=== PATIENT | female | born 1935 | race Caucasian/White ===

== ENCOUNTER 2019-06-08 19:51 | Inpatient (IN) | payer MEDICARE, OTHER ==
[~2019-06-08] VITALS: Ht 165.1 cm; Wt 65.8 kg
[~2019-06-08 19:51] MED LIST: ACID REDUCER150 MG PO; ALBUTEROL2.5 MG/3 M INH; BACTRIM 400-801 EACH PO; CIPROFLOXACIN250 MG PO; CIPROFLOXACIN500 MG PO; CRANBERRY200 MG PO; FLUTICASONE PRO16 GM NAS; LEVOFLOXACIN500 MG PO; MIRALAX17 GM PO; MULTI VITAMIN1 EACH PO; MYRBETRIQ50 MG PO; NITROFURANTOIN100 MG PO; PANTOPRAZOLE SO40 MG PO; POTASSIUM CHLO10 ME1 PO; RISPERIDONE0.5 MG PO; SENNA PLUS TAB1 EACH PO; SOOTHE LUBRICA1 EACH OU; STOOL SOFTENER100 MG PO; SUCRALFATE1 GM PO; SUDOGEST60 MG PO; SULFAMETHOXAZO1 EACH PO; VENTOLIN HFA18 GM INH
[2019-06-08] MEDS ORDERED: NYSTATIN15 GM TOP (21:22)
[2019-06-08] MEDS ORDERED: TYLENOL EXTRA500 MG PO (21:22)
--- NOTE | 2019-06-08 22:30 | NUR ---
PT ARRIVED TO THE FLOOR VIA ED STRETCHER AND BROUGHT BY THIS RN. WITH HELP FROM DARNELL VALENCIA AND OFE CONNOR, PT MOVED TO HOSPITAL BOOD. PT NONVERBAL AT BASELINE, AWAKE AND RESTING IN BED AT THIS TIME. VSS, PT ON RA. AFEBRILE. TELE#9, HR UPPER 90'S AT THIS TIME. WILL MONITOR. SBP WNL. IV FLUID BOLUS OF LR INFUSING AT 200MLS/HR. IV SITE X2 WNL. ISRAEL CATHETER IN PLACE, VOIDING WELL, URINE CLOUDY IN APPEARANCE. WILL CONTINUE TO MONITOR. PT OCCASSIONALLY STATES ONE WORD PHRASES, DENIES PAIN. HOB ELEVATED. NO SIGNS OF DISTRESS NOTED, CALL LIGHT IN REACH.
--- NOTE | 2019-06-08 23:00 | NUR ---
LAB IN ROOM AT THIS TIME TO COLLECT REPEAT LACTIC ACID. PT APPEARS COMFORTABLE, CALL LIGHT IN REACH. BED ALRM ON FOR SAFETY. HOB ELEVATED.
--- NOTE | 2019-06-09 00:44 | NUR ---
PT RESTING IN BED, EYES CLOSED. NO DISTRESS NOTED, CALL LIGHT IN REACH. BED ALARM ON FOR SAFETY. TELE#[address], HR 90, NSR. IV FLUIDS INFUSING, IV SITE WNL. WILL CONTINUE TO MONITOR.
--- NOTE | 2019-06-09 02:02 | NUR ---
VITALS AND I&OS DONE AND CHARTED. BEDSIDE TABLE AND CALL LIGHT IN REACH. WITH THE HELP OF DARNELL JIM WE REPOSITIONED PT IN BED.
--- NOTE | 2019-06-09 02:05 | NUR ---
PT RESTING IN BED, EYES CLOSED. VSS, PT ON RA. TELE#[address], HR WNL, NSR. CHAPSTICK APPLIED TO LIPS, PT APPEARS COMFORTABLE. NO DISTRESS NOTED. CALL LIGHT IN REACH.
--- NOTE | 2019-06-09 03:19 | NUR ---
PT RESTING IN BED, EYES OPEN. NO DISTRESS NOTED. ISRAEL CATHETER DRAINING, CLOUDY. PT STATES ONE WORD RESPONSES INTERMITTENTLY, DENIES PAIN. TELE#9, HR 94. CALL LIGHT IN REACH, BED ALARM ON FOR SAFETY.
--- NOTE | 2019-06-09 04:22 | NUR ---
ASSESSMENT COMPLETE, NO NEW CHANGES OR CONCERNS. PT RESTING IN BED, EYES OPEN. PT REPOSITIONED IN BED. PT INTERMITTENTLY STATES, "IM SCARED" WHEN BOOSTED IN BED AND REPOSITIONED. ISRAEL CATHETER IN PLACE, DRAINING YELLOW CLOUDY URINE. NEW BAG OF IV FLUIDS, LR INFUSING AT 100MLS/HR. CALL LIGHT IN REACH, BED ALARM ON FOR SAFETY.
--- NOTE | 2019-06-09 07:26 | NUR ---
bedside report received pt resting eyes closed breathing even and unlabored appears comfortable
--- NOTE | 2019-06-09 07:57 | NUR ---
PTIS RESTING PARTIALLY ON HER SIDE, PILLOWS ARRANGED TO PROP FOR COMFORT. PT DOES NOT VERBALLY RESPOND TO THIS WRITERS QUESTIONS, ASSESSMENT COMPLETED. MET WITH JACK SETTER TO COORDINATE PLAN OF CARE R/T POSITIONING, SIN CARE, FEEDING, AND OTHER NEEDS.
--- NOTE | 2019-06-09 08:58 | NUR ---
PTS INITIAL CASE MANAGEMENT ASSESSMENT COMPLETE WITH INFORMATION FROM NURSE, DOCTOR AND CHART. PT UNABLE TO GIVE ANY ANSWERS. CURRENTLY RESIDES IN A CUSTODIAL.
--- NOTE | 2019-06-09 11:42 | NUR ---
PT REMAINS IN THE BED AT THIS TIME, HOME CAREGIVER IN TO VISIT, PT CARE AND BASELINE DISCUSSED. PT REPOSITIONED FOR COMFORT AND PRESSURE RELIEF. STAFF ASSIST WITH BREAKFAST. TYLENOL GIVEN FOR C/O HEADACHE PT RESTING EYES CLOSED APPEARS COMFORTABLE
--- NOTE | 2019-06-09 12:26 | NUR ---
p/t in to work with this pt, home caregiver arrives at the same time and assists with pivot transfer to toilet then to chair for noon meal. caregiver remains in the room at this time and is feeding pt. pt no longer has a headache and is eating well. other needs denied
[2019-06-09] MEDS ORDERED: PROTONIX40 MG PO (13:42)
--- NOTE | 2019-06-09 13:42 | NUR ---
MED REC COMPLETE
--- NOTE | 2019-06-09 13:44 | NUR ---
PATIENT SITTING UP IN CHAIR. RN AND CAREGIVER IN ROOM. PATIENT TRANSFERRED TO BED. TWO PERSON ASSISTING. VITAL SIGNS AND I&O DONE. CALL LIGHT WITHIN REACH. NO OTHER NEEDS AT THIS TIME
--- NOTE | 2019-06-09 14:02 | NUR ---
PT EATS 100% OF NOON MEAL WITH ASSIST THEN REMAINS UPRIGHT FOR 30 MINUTES. 2 PERSON ASSIST TO BED TO REST.
--- NOTE | 2019-06-09 17:51 | NUR ---
DR SULTANA NOTIFIED OF ELEVATED TEMP, BP, AND HR. TYLENOL GIVEN. PT UP IN THE CHAIR EATS MOST OF HER EVENING MEAL BUT APPEARS DISTRESSED SHAKING A BIT INCREASED RESP RATE. SATS MID 90'S. TIME SPENT TO SET PT AT EASE SHE HAS APPEARED FRIGHTENED MUCH OF THE DAY. NOAM BEAR IN HAND, ANIMAL PLANET ON TV WILL CONTINUE TO MONITOR
--- NOTE | 2019-06-09 18:40 | NUR ---
DR SULTANA IN TO SEE PT ORDERS IV INCREASED TO 200 ML/HR FOR 1000 MLS. VITALS REVIEWED. ABX ORDERS CHANGED
--- NOTE | 2019-06-09 19:10 | NUR ---
SHIFT REPORT RECEIVED FROM DAYSHIFT DARNELL PENG. PT AWAKE AND RESTING IN BED, NO DISTRESS NOTED. PT APPEARS COMFORTABLE, CALL LIGHT IN REACH. IV FLUIDS INFUSING, IV SITE WNL.
--- NOTE | 2019-06-09 21:21 | NUR ---
ASSESSMENT COMPLETE, VSS. PT AFEBRILE AT THIS TIME. WILL CONTINUE TO MONITOR. PT NONVERBAL AT BASELINE, ONE WORD RESPONSES GIVEN TO NURSING STAFF AT TIMES. HOB ELEVATED. SCHEDULED MEDICATIONS GIVEN (SEE EMAR) WITHOUT ISSUES. PT DENIES PAIN AND APPEARS COMFORTABLE. ISRAEL CATHETER IN PLACE, DRAINING YELLOW URINE. PT REPOSITIONED IN BED WITH HELP FROM OFE OG. CALL LIGHT IN REACH, BED ALARM ON FOR SAFETY.
--- NOTE | 2019-06-09 22:30 | NUR ---
NEW BAG OF IV FLUIDS INFUSING PER MD ORDERS, IV SITE WNL. IV ABX COMPLETE. BP RESULT OF 116/45, MAP OF 62. HR 98. WILL CONTINUE TO MONITOR, PT APPEARS COMFORTABLE AND NO DISTRESS IS NOTED. HOB ELEVATED. CALL LIGHT IN REACH, BED ALARM ON FOR SAFETY.
--- NOTE | 2019-06-09 23:00 | NUR ---
SPOKE TO TELEPHARMACY TO RETIME PT'S IV ABX (ZOSYN).
--- NOTE | 2019-06-10 00:09 | NUR ---
PT RESTING IN BED, INTERMITTENTLY SLEEPING. EYES OPEN, REMAINS NONVERBAL. NO DISTRESS IS NOTED. PT APPEARS COMFORTABLE. CALL LIGHT IN REACH, BED ALARM ON FOR SAFETY.
--- NOTE | 2019-06-10 03:15 | NUR ---
ASSESMENT COMPLETE, NO NEW CHANGES FOR CONCERNS. IV ABX INFUSING, IV SITES X2 WNL. PT REMAINS NONVERBAL. PT REPOSITONED IN BED, ALLEVYN REMAINS IN PLACE TO BACK. ISRAEL CATHETER IN PLACE, VOIDING QS. VSS, PT REMAINS AFEBRILE. WILL MONITOR. NO FURTHER NEEDS, CALL LIGHT IN REACH.
--- NOTE | 2019-06-10 07:38 | NUR ---
BEDSIDE REPORT RECEIVED PT RESTING IN BED QUIET ALERT NO S/S OF DISTRESS. UP TO CHAIR WELL TOLERATED, SBA ONLY. DR SULTANA NOTIFIED OF CRITCAL LAB VALUE ORDERS BLOOD CULTURES TO BE DRAWN AGAIN.
--- NOTE | 2019-06-10 10:26 | NUR ---
PT UP TO CHAIR FOR MORNING MEAL SELF FEEDS TODAY EATS 100%. TAKEING FLUIDS WELL APPEARS BRIGHTER AND MORE INTERACTIVE. DR SULTANA IN TO SEE PT. ISRAEL DRAINING CLEAR YELLOW QUANTITY SUFFICIENT
--- NOTE | 2019-06-10 11:27 | NUR ---
PT REMAINED UP IN CHAIR AFTER MORNING MEAL THEN WORKS WITH P/T. TO BED TO REST AT THIS TIME, CONTINUES TO TAKE FLUIDS WELL
--- NOTE | 2019-06-10 14:25 | NUR ---
PT SITTING UP IN BED COLORING NO S/S OF DISTRESS OR DISCOMFORT. STERILE INSTRUMENT TECHNICIAN WAS IN EARLIER TO VISIT. PT IS EATING WELL AND INTERACTIVE THIS SHIFT
--- NOTE | 2019-06-10 16:41 | NUR ---
PT HAS RED YEAST AREA UNDER RIGHT BREAST ORDERS FOR NYSTATIN COMPLETE. STAFF PROVIDING BED BATH
--- NOTE | 2019-06-10 19:00 | NUR ---
SHIFT REPORT RECEIVED FROM DAYSHIFT RN SARAH AT BEDSIDE. PT AWAKE AND WATCHING TELEVISION, REMAINS NONVERBAL. IV ABX INFUSING, IV SITE WNL. NO CONCERNS AT THIS TIME, CALL LIGHT IN REACH.
--- NOTE | 2019-06-10 21:20 | NUR ---
ASSESSMENT COMPLETE, SCHEDULED MEDICATIONS GIVEN (SEE EMAR). VSS, PT AWAKE AND RESTING IN CHAIR. AFEBRILE. PT UP 2PA TO BED, ALARM ON FOR SAFETY. NONVERBAL AT BASELINE. SCHEDULED NYSTATIN HELD PT WAS RECENTLY GIVEN NYSTATIN ON DAYSHIFT AT 1700 FOR REDDNESS UNDER BREASTS. ISRAEL CATHETER IN PLACE, VOIDING YELLOW URINE. IV ABX INFUSING, IV SITE WNL. BLE ELEVATED. NO FURTHER NEEDS, PT APPEARS COMFORTABLE. CALL LIGHT IN REACH.
--- NOTE | 2019-06-10 21:54 | NUR ---
PT HOLDING IV TUBING. WRAPPED LIGHTLY WITH COBAN. COVERED PT WITH BLANKETS, APPEARS COMFORTABLE, NOT SHIFTING IN BED. NON VERBAL. BED ALARM IN PLACE.
--- NOTE | 2019-06-10 23:23 | NUR ---
PT RESTING IN BED, EYES CLOSED. PT SALINE LOCKED, IV SITE WNL. BLE ELEVATED ON PILLOWS. NO DISTRESS NOTED, PT APPEARS COMFORTABLE. CALL LIGHT IN REACH, BED ALARM ON FOR SAFETY.
--- NOTE | 2019-06-11 03:42 | NUR ---
ASSESSMENT COMPLETE, NO NEW CONCERNS OR CHANGES. PT RESTING IN BED, EYES CLOSED. REMAINS NONVERBAL. 0200 VSS, PT ON RA. IV ABX INFUSING, IV SITE WNL. PT REPOSITIONED WITH HELP FROM OFE DECEMBER. BLE ELEVATED ON PILLOWS. HOB ELEVATED. ALLEVYN TO BACK. CALL LIGHT IN REACH, BED ALARM ON FOR SAFETY.
--- NOTE | 2019-06-11 05:03 | NUR ---
PT HAD A GOOD NIGHT, SLEPT FOR MOST OF SHIFT. VSS, AFEBRILE ALL NIGHT. REPOSITIONED PRN, ALLEVYN TO BACK. HOB ELEVATED. REMAINS NONVERBAL, BED ALRM ON FOR SAFETY. 2PA WITH AMBULATION, ORDERS FOR PT. DAILY WEIGHTS. IV ABX, IV SITE WNL. ISRAEL CATHETER DRAINING QS YELLOW URINE, REGULAR MOSIT AND MINCED DIET, NEEDS HELP WITH FEEDING. +1 TO +2 ION BLE, ELEVATED ON PILLOWS. NYSTATIN FOR UNDER BREASTS.
--- NOTE | 2019-06-11 08:05 | NUR ---
PT RESTING IN BED, EYES CLOSED RESP EVEN AND UNLABORED.
--- NOTE | 2019-06-11 09:53 | NUR ---
TO ROOM PATIENT UP IN RECLINER EATING FOOD. DOES NOT VERBALIZE ANY CONCERNS OR QUESTIONS, DOES NOT ANSWER ANY QUESTIONS PATIENT AT BASELINE SECONDARY TO DEMENTIA. CALL TO [facility], SPOKE WITH [facility]. PLANS FOR PATIENT TO RETURN TO FACILITY, NO NEEDS AT THIS TIME. REPORTS DR. BLANCO CHANGES ISRAEL CATH Q2WKS. MICRO LAB ANALYST REPORTS ABLE TO CARE FOR ISRAEL CATHETER AT PRISON. NO HOME HEALTH INVOLVED AT THIS TIME.
--- NOTE | 2019-06-11 10:02 | NUR ---
PATIENT ATE 100% OF BREAKFAST WHILE SITTING UP IN CHAIR. LEGS ELEVATED. CALL BUTTON IN REACH. NO OTHER NEEDS AT THIS TIME.
--- NOTE | 2019-06-11 10:25 | NUR ---
PT SITTING UP IN CHAIR EATING BREAKFAST WITH ASSISTANCE FROM GLENN THAKUR. PT AT BASELINE ORIENTATION, MINIMAL TO NO VERBAL RESPONSE NOTED, UNABLE TO ASSESS ORIENTATION STATUS. PT SHOWS NO SIGNS OF PAIN AT THIS TIME.
[2019-06-11] MEDS ORDERED: BACTRIM DS TAB1 EACH PO (10:45)
--- NOTE | 2019-06-11 11:45 | NUR ---
PT ASSITED TO GET DRESSED, 2PA TO STAND AND SIT BACK DOWN IN RECLINER. CURRENTLY SITTING UP IN CHAIR EATING LUNCH INDEPENDENTLY, DEA WELL. KAITE CAREGIVER AT BEDSIDE. CALL LIGHT WITHIN REACH.
== END 2019-06-11 13:00 | disposition home or self-care (01) | DRG 698 ==
LOC: ED 19:51 → MS 22:14
PROVIDERS: ADMIT Student in an Organized Health Care Education/Training Program
DX: T83.511A Infection and inflammatory reaction due to indwelling urethral catheter, initial encounter (principal); A41.59 Other Gram-negative sepsis; R65.20 Severe sepsis without septic shock; G93.41 Metabolic encephalopathy; N17.9 Acute kidney failure, unspecified; N39.0 Urinary tract infection, site not specified; K21.9 Gastro-esophageal reflux disease without esophagitis; E87.6 Hypokalemia; R62.50 Unspecified lack of expected normal physiological development in childhood; Z79.51 Long term (current) use of inhaled steroids; Z79.899 Other long term (current) drug therapy
CPT/HCPCS: 36415; 51702; 71045; 80048; 80053; 81001; 83605; 83735; 83880; 85025; 85610; 85730; 87077; 87088; 87186; 87502; 97110; 97163; 97530; 99285-25; J0696; J1650; J2543; J7030; J7060; J7120

== ENCOUNTER 2019-11-30 16:31 | Inpatient (IN) | payer MEDICARE, OTHER ==
[~2019-11-30] VITALS: Ht 165.1 cm; Wt 57.6 kg
[~2019-11-30 16:31] MED LIST changes: +BACTRIM DS TAB1 EACH PO; +NYSTATIN15 GM TOP; +PROTONIX40 MG PO; +TYLENOL EXTRA500 MG PO
--- OUTSIDE RECORDS SUMMARY | 2019-11-30 16:34 | XMS ---
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 [facility] VISIT COUNT (12 MO.) 3 VARSHA Parra TOTAL 3 NOTE: Visits indicate total known visits. ED/UCC VISIT TRACKING (12 MO.) 11/30/2019 16:32 VARSHA Mata OR TYPE: Emergency COMPLAINT: - FEVER 06/08/2019 19:52 VARSHA Mata OR TYPE: Emergency COMPLAINT: - FEVER 03/27/2019 13:01 VARSHA Mata OR TYPE: Emergency COMPLAINT: - SOB,FEVER INPATIENT VISIT TRACKING (12 MO.) 06/08/2019 22:14 VARSHA Mata OR TYPE: Medical Surgical COMPLAINT: - UTI DIAGNOSES: - I/I react d/t indwelling urethral catheter, init - Acute kidney failure, unspecified - Severe sepsis without septic shock - Gastro-esophageal reflux disease without esophagitis - Sepsis, unspecified organism Sepsis, u - Urinary tract infection, site not specified - Other jail (current) drug therapy - Hypokalemia - 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 - Other Gram-negative sepsis Other Gra - Unsp lack of expected normal physiol dev in childhood - Metabolic encephalopathy 03/27/2019 16:28 VARSHA Mata OR TYPE: Medical Surgical COMPLAINT: - SEPSIS,UTI DIAGNOSES: - Other Gram-negative sepsis Other Gra - termite control technician (current) use of antibiotics - Other Gram-negative sepsis Other Gra - Personal history of other mental and behavioral disorders - Urinary tract infection, site not specified - detention (current) use of antibiotics - Sepsis, unspecified organism Sepsis, u - Other jail (current) drug therapy - Severe sepsis without septic shock - Urinary tract infection, site not specified - I/I react d/t indwelling urethral catheter, init - Vomiting, unspecified - Other long chain quiller tender (current) drug therapy - Vomiting, unspecified - Personal history of other mental and behavioral disorders - Severe sepsis without septic shock [email or web address]
--- NOTE | 2019-12-01 10:58 | EKG ---
[facility] [address] [place] [address] Signed Sinus tachycardia Possible Inferior infarct , age undetermined Abnormal ECG When compared with ECG of 27-MAR-2019 13:32, T wave amplitude has increased in Lateral leads Confirmed by NATALIE FARIAS MD ([id number]) on 12/01/2019 10:58:16 AM Electronically Signed By: NATALIE FARIAS MD 12/01/19 1058 PATIENT NAME: SARAHI LEMA Electrocardiogram DATE OF : 35 PHYSICIAN: NATALIE FARIAS MD REPORT #: [id number] REPORT IS CONFIDENTIAL AND NOT TO BE RELEASED WITHOUT AUTHORIZATION
[2019-12-02] MEDS ORDERED: ARTIFICIAL TEAR15 M3 OU (07:28)
[2019-12-02] MEDS ORDERED: RISPERIDONE0.25 MG PO (07:31)
[2019-12-02] MEDS ORDERED: BACTRIM DS TAB1 EACH PO (17:47)
== END 2019-12-02 19:34 | disposition home or self-care (01) | DRG 698 ==
LOC: ED 16:31 → CCU 18:26 → MS 12-01 13:40
PROVIDERS: ADMIT Internal Medicine
DX: T83.511A Infection and inflammatory reaction due to indwelling urethral catheter, initial encounter (principal); A41.59 Other Gram-negative sepsis; G93.41 Metabolic encephalopathy; N13.6 Pyonephrosis; N30.00 Acute cystitis without hematuria; E87.5 Hyperkalemia; R62.50 Unspecified lack of expected normal physiological development in childhood; N31.9 Neuromuscular dysfunction of bladder, unspecified; Z66 Do not resuscitate; Z79.899 Other long term (current) drug therapy
CPT/HCPCS: 36415; 71045; 74176; 80048; 80053; 81001; 83605; 83735; 85025; 87040; 87077; 87088; 87186; 93005; 93010; 94645; 96374; 99285-25; J0692; J0696; J1650; J1815; J3475; J7030; J7070; J7121

== ENCOUNTER 2021-05-07 08:58 | Emergency (ER) | payer MEDICARE, OTHER ==
[~2021-05-07] VITALS: Ht 165.1 cm; Wt 57.6 kg
[~2021-05-07 08:58] MED LIST changes: +ARTIFICIAL TEAR15 M3 OU; +RISPERIDONE0.25 MG PO
[2021-05-07] MEDS ORDERED: CEPHALEXIN500 M1 PO (13:31)
== END 2021-05-07 14:25 | disposition home or self-care (01) ==
LOC: ED 08:58
DX: G93.41 Metabolic encephalopathy (principal); N39.0 Urinary tract infection, site not specified; Z20.822 Contact with and (suspected) exposure to COVID-19; Z79.899 Other long term (current) drug therapy
CPT/HCPCS: 51702; 71045; 80053; 81001; 85025; 87088; 99285-25; C9803; J0696; U0003

== ENCOUNTER 2021-08-15 09:12 | Emergency (ER) | payer MEDICARE, OTHER ==
[~2021-08-15] VITALS: Ht 165.1 cm; Wt 57.6 kg
[~2021-08-15 09:12] MED LIST changes: +CEPHALEXIN500 M1 PO
[2021-08-15] MEDS ORDERED: OXYBUTYNIN CHLOR5 M1 PO (09:22)
[2021-08-15] MEDS ORDERED: FAMOTIDINE20 MG PO (09:23)
== END 2021-08-15 11:52 | disposition home or self-care (01) ==
LOC: ED 09:12
DX: R53.1 Weakness (principal); R62.50 Unspecified lack of expected normal physiological development in childhood; Q67.0 Congenital facial asymmetry; Z79.899 Other long term (current) drug therapy
CPT/HCPCS: 70450; 80053; 81001; 85025; 87088; 99285-25

== ENCOUNTER 2021-12-10 09:04 | Emergency (ER) | payer MEDICARE, OTHER ==
[~2021-12-10] VITALS: Ht 165.1 cm; Wt 53.1 kg
[~2021-12-10 09:04] MED LIST changes: +CEFPODOXIME PR200 MG PO; +FAMOTIDINE20 MG PO; +OXYBUTYNIN CHLOR5 M1 PO
[2021-12-10] MEDS ORDERED: CEFDINIR300 MG PO (12:10)
== END 2021-12-10 13:02 | disposition home or self-care (01) ==
LOC: ED 09:04
DX: N39.0 Urinary tract infection, site not specified (principal); Z79.899 Other long term (current) drug therapy
CPT/HCPCS: 36415; 51701; 80053; 81001; 83690; 85025; 87088; 99283-25; J0696